=== PATIENT | female | born 1990 | race Caucasian/White ===

== ENCOUNTER 2018-09-18 17:52 | Emergency (ER) | payer OTHER ==
--- NOTE | 2018-09-18 18:12 | ER Report ---
History and Physical Time Seen By MD: 18:12 Hx. of Stated Complaint: n/v since this morning. states phenergan and haldol is what she normally gets to help. states short of breath-hx of heart attack HPI/ROS CHIEF COMPLAINT: gastroparesis with nausea, vomiting HISTORY OF PRESENT ILLNESS: This is a 27 year old female. She is having nausea and vomiting since this morning. Not able to eat or drink today. Has this periodically from her type I diabetes. Usually gets Haldol, Phenergan and IV fluids. Is a little short of breath with this as well, which will happen when she gets this. Has history of heart attack in past, no chest pain at this time. Feel similar to her past gastroparesis attacks. No urinary problems. Would like a test. No fevers. Allergies: Coded Allergies: insulin detemir (Verified Allergy, Intermediate, barbie, 09/18/18) Home Meds Reported Medications Promethazine Hcl (PROMETHAZINE HCL) 25 Mg Tablet, 25 MG PO Q8H, TAB 09/18/18 Dicyclomine Hcl (BENTYL) 10 Mg/1 Ml Ampul, 10 MG IM 09/18/18 Ondansetron Hcl (ZOFRAN) 8 Mg Tablet, 8 MG PO Q12H, TAB 09/18/18 Insulin Lisp Protam/Lisp Human (NOVOLOG MIX 70-30 VIAL) 1 Unit Soln, 1 UNIT SC 09/18/18 Empagliflozin (Jardiance) 10 Mg Tablet 09/18/18 Citalopram Hydrobromide (CELEXA) 40 Mg Tablet, 40 MG PO QDAY, #5 TAB 09/18/18 Lisinopril (LISINOPRIL) 5 Mg Tablet, 5 MG PO QDAY, TAB 09/18/18 Clopidogrel Bisulfate (PLAVIX) 75 Mg Tablet, 1 TAB PO QDAY, TAB 09/18/18 Atenolol (ATENOLOL) 25 Mg Tablet, 1 TAB PO BID, TAB 09/18/18 Gabapentin (GABAPENTIN) 300 Mg Capsule, 300 MG PO TID, CAPSULE 09/18/18 Aspirin (ASPIRIN) 81 Mg Tab.chew, 81 MG PO QDAY, TAB.CHEW 09/18/18 Atorvastatin Calcium (LIPITOR) 40 Mg Tablet, 1 TAB PO QDAY, TAB 09/18/18 Reviewed Nurses Notes: Yes Constitutional Vital Sign - Last 24 Hours 09/18/18 09/18/18 09/18/18 09/18/18 17:57 18:00 18:30 19:00 Temp 97.8 Pulse 108 98 101 94 Resp 22 18 13 16 B/P (MAP) 142/103 127/95 (106) 125/80 (95) 116/75 (89) Pulse Ox 100 100 100 95 O2 Delivery Room Air 09/18/18 09/18/18 09/18/18 09/18/18 19:05 19:20 19:30 19:35 Pulse 100 101 104 Resp 18 16 16 B/P (MAP) 99/56 (70) Pulse Ox 97 97 96 09/18/18 09/18/18 09/18/18 09/18/18 19:40 19:55 20:00 20:10 Pulse 112 96 104 Resp 18 15 15 B/P (MAP) 123/75 (91) Pulse Ox 99 96 09/18/18 09/18/18 09/18/18 09/18/18 20:25 20:40 20:55 21:00 Pulse 102 101 102 105 Resp 14 14 14 15 B/P (MAP) ???/??? (1665) Pulse Ox 97 98 93 94 09/18/18 09/18/18 21:15 21:23 Pulse 109 Resp 22 B/P (MAP) 126/82 (97) Pulse Ox 96 Intake and Output 0 09/18/18 09/18/18 09/19/18 15:00 23:00 07:00 Intake Total 3000 ml Balance 3000 ml Physical Exam General Appearance: The patient is alert. No acute distress. Eyes: Pupils are equal, round. No pallor, injection or icterus. ENT: Mucous membranes are dry. Otherwise normal oral mucosa. Posterior oropharynx is normal. Neck: Supple and non tender. Respiratory: Lungs are clear to auscultation. Cardiovascular: Regular rate and rhythm. No murmurs, gallops or rubs. Normal capillary refill. Gastrointestinal: Abdomen is soft and non tender. Nondistended. No masses or organomegaly. Hyperactive bowel sounds. Neurological: Alert and oriented x3. No focal neurologic deficits. Skin: Warm and dry. Musculoskeletal: Extremities are nontender. DIFFERENTIAL DIAGNOSIS: After history and physical exam, differential diagnosis was considered for some dehydration from ongoing nausea and vomiting for her diabetic gastroparesis. Medical Decision Making Data Points Result Diagram: 09/18/18180909/18/181809 Laboratory Hematology Test 09/18/18 00:00 09/18/18 18:01 09/18/18 18:10 09/18/18 18:30 Human Chorionic Gonadotropin, Qual Negative (NEGATIVE) Urine Color Yellow Urine Clarity Clear Urine pH 5.0 pH (4.8-9.5) Urine Specific [place] 1.039 Urine Protein Negative mg/dL (NEGATIVE) Urine Glucose (UA) 500 mg/dL (NEGATIVE) Urine Ketones 20 mg/dL (NEGATIVE) Urine Blood Negative (NEGATIVE) Urine Nitrite Negative (NEGATIVE) Urine Bilirubin Negative (NEGATIVE) Urine Urobilinogen Negative mg/dL (0.2-1.9) Urine Leukocyte Esterase Negative (NEGATIVE) Urine RBC 1 /HPF (0-2/HPF) Urine WBC 4 /HPF (0-5/HPF) Urine Squamous Epithelial Cells Many /LPF (</=FEW) Urine Transitional Epithelial Cells Few /LPF (NONE-FEW) Urine Bacteria Few /HPF (NONE-FEW) Urine Mucus Few /HPF (NONE-FEW) Red Blood Count 4.73 M/uL (4.17-5.56) Mean Corpuscular Volume 89.9 fL (80.0-96.0) Mean Corpuscular Hemoglobin 30.7 pg (26.0-33.0) Mean Corpuscular Hemoglobin Concent 34.2 g/dL (32.0-36.0) Red Cell Distribution Width 13.9 % (11.5-14.5) Mean Platelet Volume 8.6 fL (7.2-11.1) Neutrophils (%) (Auto) 63.8 % (39.4-72.5) Lymphocytes (%) (Auto) 28.1 % (17.6-49.6) Monocytes (%) (Auto) 5.7 % (4.1-12.4) Eosinophils (%) (Auto) 1.9 % (0.4-6.7) Basophils (%) (Auto) 0.5 % (0.3-1.4) Nucleated RBC Relative Count (auto) 0.0 /100WBC Neutrophils # (Auto) 8.1 K/uL (2.0-7.4) Lymphocytes # (Auto) 3.6 K/uL (1.3-3.6) Monocytes # (Auto) 0.7 K/uL (0.3-1.0) Eosinophils # (Auto) 0.2 K/uL (0.0-0.5) Basophils # (Auto) 0.1 K/uL (0.0-0.1) Nucleated RBC Absolute Count (auto) 0.01 K/uL Sodium Level 137 mmol/L (137-145) Potassium Level 4.3 mmol/L (3.5-5.0) Chloride Level 104 mmol/L (98-107) Carbon Dioxide Level 17 mmol/L (22-31) Blood Urea Nitrogen 22 mg/dl (7-18) Creatinine 0.60 mg/dl (0.52-1.04) Glomerular Filtration Rate Calc > 60.0 Random Glucose 237 mg/dl (75-110) Calcium Level 9.7 mg/dl (8.4-10.2) Total Bilirubin 0.8 mg/dl (0.2-1.3) Aspartate Amino Transf (AST/SGOT) 40 U/L (0-35) Alanine Aminotransferase (ALT/SGPT) 77 U/L (0-56) Alkaline Phosphatase 121 U/L (0-126) Total Protein 8.0 g/dl (6.3-8.2) Albumin 4.8 g/dl (3.5-5.0) Whole Blood Glucose 186 mg/DL (75-110) Chemistry Test 09/18/18 00:00 09/18/18 18:01 09/18/18 18:10 09/18/18 18:30 Human Chorionic Gonadotropin, Qual Negative (NEGATIVE) Urine Color Yellow Urine Clarity Clear Urine pH 5.0 pH (4.8-9.5) Urine Specific [place] 1.039 Urine Protein Negative mg/dL (NEGATIVE) Urine Glucose (UA) 500 mg/dL (NEGATIVE) Urine Ketones 20 mg/dL (NEGATIVE) Urine Blood Negative (NEGATIVE) Urine Nitrite Negative (NEGATIVE) Urine Bilirubin Negative (NEGATIVE) Urine Urobilinogen Negative mg/dL (0.2-1.9) Urine Leukocyte Esterase Negative (NEGATIVE) Urine RBC 1 /HPF (0-2/HPF) Urine WBC 4 /HPF (0-5/HPF) Urine Squamous Epithelial Cells Many /LPF (</=FEW) Urine Transitional Epithelial Cells Few /LPF (NONE-FEW) Urine Bacteria Few /HPF (NONE-FEW) Urine Mucus Few /HPF (NONE-FEW) White Blood Count 12.8 k/uL (4.5-11.0) Red Blood Count 4.73 M/uL (4.17-5.56) Hemoglobin 14.5 g/dL (12.0-16.0) Hematocrit 42.6 % (34.0-47.0) Mean Corpuscular Volume 89.9 fL (80.0-96.0) Mean Corpuscular Hemoglobin 30.7 pg (26.0-33.0) Mean Corpuscular Hemoglobin Concent 34.2 g/dL (32.0-36.0) Red Cell Distribution Width 13.9 % (11.5-14.5) Platelet Count 388 K/uL (150-450) Mean Platelet Volume 8.6 fL (7.2-11.1) Neutrophils (%) (Auto) 63.8 % (39.4-72.5) Lymphocytes (%) (Auto) 28.1 % (17.6-49.6) Monocytes (%) (Auto) 5.7 % (4.1-12.4) Eosinophils (%) (Auto) 1.9 % (0.4-6.7) Basophils (%) (Auto) 0.5 % (0.3-1.4) Nucleated RBC Relative Count (auto) 0.0 /100WBC Neutrophils # (Auto) 8.1 K/uL (2.0-7.4) Lymphocytes # (Auto) 3.6 K/uL (1.3-3.6) Monocytes # (Auto) 0.7 K/uL (0.3-1.0) Eosinophils # (Auto) 0.2 K/uL (0.0-0.5) Basophils # (Auto) 0.1 K/uL (0.0-0.1) Nucleated RBC Absolute Count (auto) 0.01 K/uL Glomerular Filtration Rate Calc > 60.0 Calcium Level 9.7 mg/dl (8.4-10.2) Total Bilirubin 0.8 mg/dl (0.2-1.3) Aspartate Amino Transf (AST/SGOT) 40 U/L (0-35) Alanine Aminotransferase (ALT/SGPT) 77 U/L (0-56) Alkaline Phosphatase 121 U/L (0-126) Total Protein 8.0 g/dl (6.3-8.2) Albumin 4.8 g/dl (3.5-5.0) Whole Blood Glucose 186 mg/DL (75-110) Urinalysis Test 09/18/18 18:01 Urine Color Yellow Urine Clarity Clear Urine pH 5.0 pH (4.8-9.5) Urine Specific [place] 1.039 Urine Protein Negative mg/dL (NEGATIVE) Urine Glucose (UA) 500 mg/dL (NEGATIVE) Urine Ketones 20 mg/dL (NEGATIVE) Urine Blood Negative (NEGATIVE) Urine Nitrite Negative (NEGATIVE) Urine Bilirubin Negative (NEGATIVE) Urine Urobilinogen Negative mg/dL (0.2-1.9) Urine Leukocyte Esterase Negative (NEGATIVE) Urine RBC 1 /HPF (0-2/HPF) Urine WBC 4 /HPF (0-5/HPF) Urine Squamous Epithelial Cells Many /LPF (</=FEW) Urine Transitional Epithelial Cells Few /LPF (NONE-FEW) Urine Bacteria Few /HPF (NONE-FEW) Urine Mucus Few /HPF (NONE-FEW) ED Course/Re-evaluation Clinical Indication for ER IV: Hydration, IV Access ED Course Patient was given Haldol 2.5 mg IV and Phenergan 12.5 mg IV. Also given a liter of normal saline. She had some improvement but still struggling. Another dose of Haldol and Phenergan were given as well as a second liter of normal saline. On reevaluation later she is feeling much better. We gave a third liter. Labs show no increase in her anion gap. She does have some blood glucose as well as ketones in her urine but no sign of infection. She was feeling better at the end of her third liter and we will go ahead and discharge her home, no changes to her current medications at this time. Decision to Disposition Date: Sep 18, 2018 Decision to Disposition Time: 20:24 Depart Departure Latest Vital Signs Vital Signs Date Time Temp Pulse Resp B/P (MAP) Pulse Ox O2 Delivery O2 Flow Rate FiO2 09/18/18 21:23 126/82 (97) 09/18/18 21:15 109 22 96 09/18/18 17:57 97.8 Room Air Impression: Primary Impression: Diabetic gastroparesis associated with type 1 diabetes mellitus Additional Impression: Dehydration Condition: Improved Disposition: HOME OR SELF-CARE Patient Instructions: Dehydration (ED), Diabetic Gastroparesis (DC) Additional Instructions: No changes in medications. You can continue to use Phenergan or Zofran as needed for nausea or vomiting Rest and try to take in small frequent sips of fluids. Follow-up with primary care. Problem Qualifiers JAZZMINE PITTMAN MD Sep 18, 2018 18:12
[2018-09-18] MEDS ORDERED: PROMETHAZINE 25 MG/ML 1 ML AMP IVP ONE ×2 (18:15→19:00)
[2018-09-18] MEDS ORDERED: NS(*) 0.9% 1000 ML BAG 1,000 ML IV ONE ×3 (18:15→19:50)
[2018-09-18] MEDS ORDERED: PROM-110 PO (18:17)
[2018-09-18] MEDS ORDERED: LISI5TAB25 PO (18:17)
[2018-09-18] MEDS ORDERED: ATOR40TA24 PO (18:17)
[2018-09-18] MEDS ORDERED: ATEN-65 PO (18:17)
[2018-09-18] MEDS ORDERED: EMPA10TA (18:17)
[2018-09-18] MEDS ORDERED: CLOP75TA43 PO (18:17)
[2018-09-18] MEDS ORDERED: ONDA8TAB91 PO (18:17)
[2018-09-18] MEDS ORDERED: ASPI81TA94 PO (18:17)
[2018-09-18] MEDS ORDERED: NOV7030I SC (18:17)
[2018-09-18] MEDS ORDERED: DICY10AM2 IM (18:17)
[2018-09-18] MEDS ORDERED: CITA-157 PO (18:17)
[2018-09-18] MEDS ORDERED: GABA-549 PO (18:17)
[2018-09-18 18:23] LABS: PLATELET COUNT, AUTOMATED 388 K/uL (150-450)
[2018-09-18] MEDS: HALOPERIDOL LACT 5 MG/ML VIAL IM ONE ×2 (18:25→18:27)
[2018-09-18 21:23] VITALS: BP 126/82
--- NOTE | 2018-09-21 09:27 | EKG ---
FACILITY: [facility] PATIENT NAME: GABE CORDERO : [id number] MR: [id number] V: [id number] EXAM DATE: ORDERING PHYSICIAN: MIRIAM CAMPBELL TECHNOLOGIST: Test Reason : Blood Pressure : / mmHG Vent. Rate : 091 BPM Atrial Rate : 091 BPM P-R Int : 138 ms QRS Dur : 076 ms QT Int : 382 ms P-R-T Axes : 069 067 058 degrees QTc Int : 469 ms Normal sinus rhythm with sinus arrhythmia Normal ECG No previous ECGs available Confirmed by KIP ASHLEY ([id number]) on 09/21/2018 5:12:45 PM Referred By: Confirmed By:KIP ASHLEY
== END 2018-09-18 21:32 | disposition home or self-care (01) ==
LOC: ER 18:05
DX: E10.43 Type 1 diabetes mellitus with diabetic autonomic (poly)neuropathy (principal); K31.84 Gastroparesis; E86.0 Dehydration
CPT/HCPCS: 36416; 81001; 82948; 84703; 85025; 93005; 96361; 96374; 96375; 99284; J1630; J2550; J7030; 82040; 82247; 82310; 82374; 82435; 82565; 82947; 84075; 84132; 84155; 84295; 84450; 84460; 84520